=== PATIENT | female | born 1985 | race Caucasian/White ===

== ENCOUNTER 2018-12-22 07:46 | Emergency (ER) | payer OTHER ==
[~2018-12-22] VITALS: Ht 172.7 cm; Wt 87.2 kg
[2018-12-22 07:46] VITALS: BP 120/74
--- NOTE | 2018-12-22 08:10 | PHYS DOC ---
Past History Past Medical History: Depression, Other Past Surgical History: No Surgical History Alcohol Use: None Drug Use: Cocaine, Methadone Adult General Chief Complaint Chief Complaint: SORE THROAT HPI HPI 33-year-old female presents with sore throat. She has developed a sore throat, runny nose and cough over the last 2 days. There are several other people sick at the place where she lives. She denies fever or chills. She has been taking ibuprofen and Tylenol for pain. She is concerned about strep throat. She did also have a root canal last on the right side. This is the same side that is hurting today. She believes that she recovered from the root canal completely before this illness started. Review of Systems Review of Systems Constitutional: Denies fever or chills [] Eyes: Denies change in visual acuity, redness, or eye pain [] HENT: sore throat [] Respiratory: Cough without shortness of breath [] Cardiovascular: No additional information not addressed in HPI [] GI: Denies abdominal pain, nausea, vomiting, bloody stools or diarrhea [] : Denies dysuria or hematuria [] Musculoskeletal: Denies back pain or joint pain [] Integument: Denies rash or skin lesions [] Neurologic: Denies headache, focal weakness or sensory changes [] Endocrine: Denies polyuria or polydipsia [] All other systems were reviewed and found to be within normal limits, except as documented in this note. Allergies Allergies Allergies Coded Allergies Type Severity Reaction Last Updated Verified No Known Drug Allergies 12/22/18 No Physical Exam Physical Exam Constitutional: Well developed, well nourished, no acute distress, non-toxic appearance. [] HENT: Normocephalic, atraumatic, bilateral external ears normal, oropharynx erythematous without obvious exudates, nose normal. [] Eyes: PERRLA, EOMI, conjunctiva normal, no discharge. [] Neck: Normal range of motion, prominent right anterior cervical lymph node, soft[] Cardiovascular:Heart rate regular rhythm, no murmur [] Lungs & Thorax: Bilateral breath sounds clear to auscultation [] Abdomen: Bowel sounds normal, soft, no tenderness, no masses, no pulsatile masses. [] Skin: Warm, dry, no erythema, no rash. [] Back: No tenderness, no CVA tenderness. [] Extremities: No tenderness, no cyanosis, no clubbing, ROM intact, no edema. [] Neurologic: Alert and oriented X 3, normal motor function, normal sensory function, no focal deficits noted. [] Psychologic: Affect normal, judgement normal, mood normal. [] EKG EKG [] Radiology/Procedures Radiology/Procedures [] Course & Med Decision Making Course & Med Decision Making Pertinent Labs and Imaging studies reviewed. (See chart for details) The patient's strep is negative. This is likely a viral illness. I do not see signs of peritonsillar abscess or other concerning infection from the surgery. I believe this is a separate issue completely at this time. She is stable for discharge. [] Dragon Disclaimer Dragon Disclaimer This electronic medical record was generated, in whole or in part, using a voice recognition dictation system. Departure Departure: Impression: Primary Impression: Viral pharyngitis Disposition: HOME, SELF-CARE Condition: STABLE Referrals: PCP,NO (PCP) Patient Instructions: Viral Pharyngitis SUNI DORAN DO Dec 22, 2018 08:10
== END 2018-12-22 08:53 | disposition home or self-care (01) ==
LOC: ER 07:46
DX: J02.8 Acute pharyngitis due to other specified organisms (principal); B97.89 Other viral agents as the cause of diseases classified elsewhere
CPT/HCPCS: 87070; 87880; 99284

== ENCOUNTER 2019-01-04 17:31 | Emergency (ER) | payer OTHER ==
[~2019-01-04] VITALS: Ht 172.7 cm; Wt 87.2 kg
[2019-01-04 17:39] VITALS: BP 129/80
--- NOTE | 2019-01-04 18:03 | PHYS DOC ---
Past History Past Medical History: Depression, Hypothyroid, UTI, Other Past Surgical History: No Surgical History, Other Alcohol Use: None Drug Use: Cocaine, Methadone Adult General Chief Complaint Chief Complaint: PAIN ON URINATION [facility] HPI 33-year-old female presents with 3 day history of dysuria and increased urinary frequency. The patient has had urinary tract infections in the past and this feels similar. She decided to come the emergency room today because she began have hematuria and now has much more pain with her dysuria. She has never had a resistant UTIs far she knows. She's never been hospitalized for one. She has had pyelonephritis once in the past. She denies fever or chills. She has no other co mplaints at this time. Review of Systems Review of Systems Constitutional: Denies fever or chills [] Eyes: Denies change in visual acuity, redness, or eye pain [] HENT: Denies nasal congestion or sore throat [] Respiratory: Denies cough or shortness of breath [] Cardiovascular: No additional information not addressed in HPI [] GI: Denies abdominal pain, nausea, vomiting, bloody stools or diarrhea [] : Dysuria and hematuria [] Musculoskeletal: Denies back pain or joint pain [] Integument: Denies rash or skin lesions [] Neurologic: Denies headache, focal weakness or sensory changes [] Endocrine: Denies polyuria or polydipsia [] All other systems were reviewed and found to be within normal limits, except as documented in this note. Allergies Allergies Allergies Coded Allergies Type Severity Reaction Last Updated Verified No Known Drug Allergies 12/22/18 No Physical Exam Physical Exam Constitutional: Well developed, well nourished, no acute distress, non-toxic appearance. [] HENT: Normocephalic, atraumatic, bilateral external ears normal, oropharynx moist, no oral exudates, nose normal. [] Eyes: PERRLA, EOMI, conjunctiva normal, no discharge. [] Neck: Normal range of motion, no tenderness, supple, no stridor. [] Cardiovascular:Heart rate regular rhythm, no murmur [] Lungs & Thorax: Bilateral breath sounds clear to auscultation [] Abdomen: Bowel sounds normal, soft, suprapubic tenderness, no masses, no pulsatile masses. [] Skin: Warm, dry, no erythema, no rash. [] Back: No tenderness, no CVA tenderness. [] Extremities: No tenderness, no cyanosis, no clubbing, ROM intact, no edema. [] Neurologic: Alert and oriented X 3, normal motor function, normal sensory function, no focal deficits noted. [] Psychologic: Affect normal, judgement normal, mood normal. [] Current Patient Data Vital Signs Vital Signs Date Time Temp Pulse Resp B/P (MAP) Pulse Ox O2 Delivery O2 Flow Rate FiO2 01/04/19 17:39 98.9 68 16 100 Room Air Lab Results Laboratory Tests Test 01/04/19 17:46 POC Urine HCG, Qualitative hcg negative (Negative) EKG EKG [] Radiology/Procedures Radiology/Procedures [] Course & Med Decision Making Course & Med Decision Making Pertinent Labs and Imaging studies reviewed. (See chart for details) The patient's urinalysis is suggestive of UTI though it shows few bacteria and mostly blood. Suspect the patient's discomfort is mostly due to the blood. I will treat her with 1 g Rocephin IM and 5 additional days of Macrobid. I will also give her Pyridium. She is stable for discharge at this time. [] Dragon Disclaimer Dragon Disclaimer This electronic medical record was generated, in whole or in part, using a voice recognition dictation system. Departure Departure: Impression: Primary Impression: Urinary tract infection Disposition: 01 HOME, SELF-CARE Condition: STABLE Referrals: DEVENDRA WOLFE [facility] (PCP) Patient Instructions: Urinary Tract Infection, [id number] Scripts Nitrofurantoin Monohyd/M-Cryst (MACROBID 100 MG CAPSULE) 100 Mg Capsule 1 CAP PO BID for UTI, #10 CAP Prov: SUNI DORAN DO 01/04/19 Problem Qualifiers Primary Impression: Urinary tract infection Urinary tract infection type: acute cystitis Hematuria presence: with hematuria Qualified Codes: N30.01 - Acute cystitis with hematuria SUNI DORAN DO Jan 04, 2019 18:03
[2019-01-04 18:18] LABS: BACTERIA,URINE FEW /HPF (0-FEW); BILIRUBIN,URINE NEG (NEG); CLARITY,URINE CLOUDY; COLOR,URINE PINK; GLUCOSE,URINE NEG (NEG); NITRITE,URINE NEG (NEG); RBC,URINE >40 /HPF (0-2); UROBILINOGEN,URINE 0.2 mg/dL (0.2 mg/dL); WBC,URINE >40 /HPF (0-4)
[2019-01-04] MEDS ORDERED: NITR100C62 PO (18:24)
[2019-01-04] MEDS ORDERED: PHENAZOPYRIDINE 200 MG TABLET. PO ONE (18:30)
[2019-01-04] MEDS ORDERED: cefTRIAXone IM 1 GM VIAL IM ONE (18:30)
== END 2019-01-04 18:56 | disposition home or self-care (01) ==
LOC: ER 17:31
DX: N30.01 Acute cystitis with hematuria (principal); E03.9 Hypothyroidism, unspecified; Z87.440 Personal history of urinary (tract) infections
CPT/HCPCS: 81001; 81025; 87086; 96372; 99284; J0696